=== PATIENT | female | born 1940 | race Two or more races ===

== ENCOUNTER 2018-08-22 12:04 | Outpatient (CLI) | payer OTHER ==
[~2018-08-22 12:04] MED LIST: ALPRAZOLAM OD0.25 MG; COZAAR25 MG; METOPROLOL SUCC25 MG; SYNTHROID175 MCG PO
== END 2018-08-22 15:00 | disposition home or self-care (01) ==
LOC: TOM 12:04
DX: R41.2 Retrograde amnesia (principal)

== ENCOUNTER 2018-08-30 13:10 | Outpatient (CLI) | payer OTHER | END 2018-08-30 13:28 | disposition home or self-care (01) | LOC: MRI 13:10 | DX: R41.2 Retrograde amnesia (principal); I63.50 Cerebral infarction due to unspecified occlusion or stenosis of unspecified cerebral artery | CPT/HCPCS: 70551 ==

== ENCOUNTER 2018-12-17 09:04 | Outpatient (CLI) | payer OTHER | END 2018-12-17 09:06 | disposition home or self-care (01) | LOC: SONOGRAMA 09:04 → MAMO-SONO 12-18 08:15 | DX: M12.9 Arthropathy, unspecified (principal); M19.90 Unspecified osteoarthritis, unspecified site; M46.47 Discitis, unspecified, lumbosacral region; R10.9 Unspecified abdominal pain ==